=== PATIENT | male | born 1975 | race Caucasian/White ===

== ENCOUNTER 2024-02-22 13:13 | Emergency (ER) | payer BC, SELFPAY ==
[2024-02-22 13:16] VITALS: BP 114/83
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
[2024-02-22 15:08] VITALS: BP 134/88
== END 2024-02-22 15:09 | disposition home or self-care (01) ==
LOC: EMR 13:13
PROVIDERS: EMERGENCY PHYSICIAN Emergency Medicine; FAMILY PHYSICIAN Family Medicine
DX: S93.602A Unspecified sprain of left foot, initial encounter (principal); X58.XXXA Exposure to other specified factors, initial encounter; M79.672 Pain in left foot; J43.9 Emphysema, unspecified; F17.200 Nicotine dependence, unspecified, uncomplicated
CPT/HCPCS: 99283; 73630

== ENCOUNTER 2024-06-05 20:40 | Emergency (ER) | payer BC, SELFPAY ==
[2024-06-05 20:41] VITALS: BP 139/90
--- NOTE | 2024-06-05 21:03 | ED.GENMED ---
History of Present Illness
General
Chief Complaint: Musculo-Skeletal Complaint
Time Seen by Provider: 06/05/24 21:03
History of Present Illness
History of Present Illness:
TIME OF INITIAL ENCOUNTER: 9:10 PM
HPI: The patient had operative repair of Lisfranc injury with Dr. Wilde at [place] approximately 3 years ago. He saw his primary care doctor a few weeks ago who placed him on prednisone for foot swelling. He is concerned because of foot
infection as there is increased redness to the foot along with warmth. Also, he saw telecom engineer who felt that he had Adams's neuroma a few months ago and was given a steroid shot which lasted for a few weeks.
EXAM:
GENERAL: Well appearing in no distress
HEENT: Moist oral mucosa
NEUROLOGIC: Excellent strength all extremities, no obvious coordination deficits
PSYCHIATRIC: Appropriate mental status, normal insight and judgement
EXTREMITIES: No edema, moves all extremities equally�see below
SKIN: There is some patchy erythema noted to the dorsal aspect of the left foot with minimal warmth but moderate tenderness, calluses noted to the plantar lateral aspect
NUMBER AND COMPLEXITY OF PROBLEMS ADDRESSED AT THE ENCOUNTER
� Chronic conditions affecting care: Smoker
� Acute Exacerbation and/or Progression of Chronic Illness: This is an acute problem
� Differential Diagnosis includes: Adams's neuroma, cellulitis, septic joint very unlikely, lymphangitis, no clinical evidence for DVT
AMOUNT AND/OR COMPLEXITY OF DATA TO BE REVIEWED AND ANALYZED
� I performed an independent evaluation of and my interpretation is:
EKG:
CT:
X-rays:
Laboratory Studies:
Other:
� Review of other/old records: The patient had x-ray of the left foot 02/22/2024 that showed no acute fracture or dislocation
� Clinical information was obtained by an independent historian: I spoke to at bedside
� Prescriptions/Medications Considered but not given:
� Further testing considered but not performed: No indication for blood work or imaging at this time, he did have imaging of the left foot a few months ago
RISK OF COMPLICATIONS AND/OR MORBIDITY OR MORTALITY OF PATIENT MANAGEMENT
� Social determinants of health affecting care: Lives at home
� Discussion with other providers:
� Escalation of care including admission/observation vs risk of discharge considered: There is some at least questionable findings of cellulitis to the left foot. Although the patient says that there is significant symptoms
going up the leg, there is no significant finding proximal to the ankle on exam. There is just minimal warmth. As he has been on steroids, I feel he may have an increased risk of infection�I have placed him on antibiotics. I encouraged him to
follow-up with orthopedics and/or podiatry.
ANY OTHER UPDATES:
Past History
Past History
ED Past Medical History: Other (Cluster headaches, Emphysema)
ED Past Surgical History: Orthopedic (Left foot surgery, ) and Other (Cyst removal on neck)
Social History
Tobacco: Smoker
Alcohol: Daily (Beer 1 and Shot 2)
Drug: None
Personal:
Living: with family
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
Family History
Family History: Other (Noncontributory)
Phy Exam
Physical Exam
Physical Exam:
See HPI
Course
Orders/Labs/Results
Orders:
Orders
06/05/24 21:18
boot [Ortho Boot Left- Treatment] ONCE
Short or tall?: Short
Cephalexin Monohydrate [Keflex] 500 mg PO NOW STA
Vital Signs
Initial and Last Documented VS:
Initial Vital Signs
Temp Pulse Resp BP Pulse Ox
98.4 F 83 18 139/90 99
06/05/24 20:41 06/05/24 20:41 06/05/24 20:41 06/05/24 20:41 06/05/24 20:41
Last Documented Vital Signs
Temp Pulse Resp BP Pulse Ox
98.4 F 83 18 139/90 99
06/05/24 20:41 06/05/24 20:41 06/05/24 20:41 06/05/24 20:41 06/05/24 20:41
*Critical Care Note
Total Time (30-74mins, 75-104mins- exclusive of procedures): Not Applicable
ED Attending Note
-
Portions of this chart may have been created with voice recognition software.� Occasional wrong word or��sound alike� substitutions may have occurred due to the inherent limitations of voice recognition software.
Discharge Plan
Departure
Patient Disposition: Home (Routine Discharge)
Date of Disposition: 06/05/24
Time of Disposition: 21:19
Patient with high blood pressure during this ER visit?: Yes
Discharge Problem:
Cellulitis of foot, left
Instructions: Cellulitis (Skin Infection), Adult ED
Prescriptions:
New
cephalexin 500 mg tablet
500 mg PO TID Qty: 21 0RF
No Action
prednisone 50 MG tablet
50 mg PO DAILY Qty: 4 0RF
ibuprofen 600 mg tablet
600 mg PO Q6H PRN (Reason: pain) Qty: 14 0RF
cyclobenzaprine 10 mg Tablet
10 mg PO TIDPRN PRN (Reason: muscle spasm) Qty: 14 0RF
prednisone 20 mg tablet
20 mg PO BID Qty: 6 0RF
ketorolac 10 mg tablet
10 mg PO QID PRN (Reason: pain) Qty: 20 0RF
diazepam [Valium] 2 mg tablet
2 mg PO TID PRN (Reason: muscle spasm) Qty: 10 0RF
caffeine 200 mg tablet
200 mg PO BID PRN (Reason: headache) Qty: 20 0RF
Stand Alone Forms: Return to Work
Activity Restrictions/Additional Instructions:
Use boot for comfort. I recommend that you follow-up with either your orthopedist and/or telecom engineer. I have placed you on Keflex and sent a prescription to your pharmacy. Try to keep the leg elevated is much as possible.
Interventions
Interventions:
*Risk Screen - Suicide Last Done: 06/05/24 20:45
*General Assessment Last Done: 06/05/24 20:45
*Neglect/Abuse Screening Last Done: 06/05/24 20:45
ED- Fall Risk Assessment Last Done: 06/05/24 20:45
*ED COVID-19 Vaccine History Last Done: 06/05/24 20:45
Discharge Date and Time
Print Language: YI
[2024-06-05] MEDS: KEFLEX 500 MG PO (21:29)
== END 2024-06-05 21:50 | disposition home or self-care (01) ==
LOC: EMR 20:40
PROVIDERS: EMERGENCY PHYSICIAN Emergency Medicine; FAMILY PHYSICIAN Family Medicine
DX: L03.116 Cellulitis of left lower limb (principal); J43.9 Emphysema, unspecified; F17.200 Nicotine dependence, unspecified, uncomplicated
CPT/HCPCS: 99283

== ENCOUNTER 2025-04-06 07:48 | Emergency (ER) | payer OTHER, SELFPAY ==
[2025-04-06 07:50] VITALS: BP 120/89
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
[2025-04-06 10:04] VITALS: BMI 19.4
[2025-04-06 10:09] VITALS: BP 143/91
== END 2025-04-06 10:17 | disposition home or self-care (01) ==
LOC: EMR 07:48
PROVIDERS: EMERGENCY PHYSICIAN Emergency Medicine; FAMILY PHYSICIAN Family Medicine
DX: G89.29 Other chronic pain (principal); M79.672 Pain in left foot; W10.9XXA Fall (on) (from) unspecified stairs and steps, initial encounter; R51.9 Headache, unspecified; F17.200 Nicotine dependence, unspecified, uncomplicated; J43.9 Emphysema, unspecified; Z87.820 Personal history of traumatic brain injury
CPT/HCPCS: 99283; 73630